=== PATIENT | male | born 1960 | race Caucasian/White ===

== ENCOUNTER 2017-09-04 11:12 | Day surgery (SDC) | payer OTHER ==
[~2017-09-04] VITALS: Ht 175.3 cm; Wt 74.8 kg
[~2017-09-04 11:12] MED LIST: FLEXERIL10 MG PO; PERCOCET 5/31 TABLET PO; VENTOLIN HFA18 GM IH
[2017-09-04 11:43] VITALS: BP 120/77
[2017-09-04 12:48] LABS: HEMATOCRIT 40.1 % (38.0-50.0); MCH 30.1 PG (29.0-34.0); MCHC 35.9 G/DL (30.0-36.0); MCV 83.9 FL (86-99); MEAN PLAT.VOLUME 10.4 uM^3 (9.0-12.4); PLATELET COUNT 172 K/uL (156-360); RBC DIS.WIDTH-SD 36.7 % (39-53); RED BLOOD COUNT 4.78 M/uL (4.00-5.50); WHITE BLOOD COUNT 4.2 K/uL (4.1-10.2)
[2017-09-04 12:49] LABS: PROTHROMBIN TIME 11.4 SEC (10.2-12.9)
[2017-09-04 12:51] LABS: PTT 30.2 SEC (25-37)
[2017-09-04 13:02] LABS: ANION GAP 7 MEQ/L (2-14); CHLORIDE 108 MEQ/L (99-109); POTASSIUM 4.5 MEQ/L (3.7-5.4); SAMPLE HEMOLYSIS CHECK 0; SAMPLE ICTERIC CHECK 0; SAMPLE LIPEMIA CHECK 0; SODIUM 140 MEQ/L (136-147); TOTAL BILIRUBIN 0.7 MG/DL (0.0-1.0)
[2017-09-04 13:07] LABS: ALKALINE PHOSPHATASE 48 IU/L (3-129); GFR ESTIMATE (CALCULATED) > 59 mL/min/; GLUCOSE 88 mg/dL (70-99); UREA NITROGEN (BUN) 16 mg/dL (9-23)
[2017-09-04] MEDS ORDERED: COLACE100 MG PO (15:35)
[2017-09-04] MEDS ORDERED: HYDROCODON-ACE1 EAC7 PO (15:35)
[2017-09-04 16:28] VITALS: BP 127/72
[2017-09-04 17:11] VITALS: BP 135/73
[2017-09-04 18:00] VITALS: BP 135/81
== END 2017-09-04 18:05 | disposition home or self-care (01) ==
LOC: SDC 11:12
PROVIDERS: Thoracic Surgery (Cardiothoracic Vascular Surgery)
PROC: 0YU60JZ Supplement Left Inguinal Region with Synthetic Substitute, Open Approach (ICD-10-PCS; principal; 2017-09-04)
DX: K40.90 Unilateral inguinal hernia, without obstruction or gangrene, not specified as recurrent (principal); J45.909 Unspecified asthma, uncomplicated
CPT/HCPCS: 80053; 85027; 85610; 85730; 88302; C1781; J0131; J0690; J0696; J1100; J1170; J1885; J2250; J2405; J7050